=== PATIENT | female | born 1965 | race Caucasian/White ===

== ENCOUNTER → 2018-08-13 | Outpatient (CLI) | payer OTHER | END | disposition home or self-care (01) | LOC: CFH 13:22 | PROVIDERS: ATTEND Nurse Practitioner | DX: N63.10 Unspecified lump in the right breast, unspecified quadrant (principal) | CPT/HCPCS: 76641; 77065; G0279 ==

== ENCOUNTER → 2018-09-17 | Outpatient (CLI) | payer OTHER ==
[~2018-09-17] MED LIST: LIDOCAINE 1%, 20ML ONE; LIDOCAINE 1%-EPI 1:100K, 20ML ONE; SODIUM BICARBONATE 4.0%, 5ML ONE
== END | disposition home or self-care (01) ==
LOC: CFH 07:35
PROVIDERS: ATTEND Nurse Practitioner
DX: D05.11 Intraductal carcinoma in situ of right breast (principal)
CPT/HCPCS: 19081; 77065; 88305; 88360; J3490

== ENCOUNTER → 2018-10-15 | Outpatient (CLI) | payer OTHER | END | disposition home or self-care (01) | LOC: CFH 07:49 | PROVIDERS: ATTEND Surgery | DX: C50.911 Malignant neoplasm of unspecified site of right female breast (principal) | CPT/HCPCS: 19281; J3490 ==

== ENCOUNTER 2018-11-21 09:44 | Outpatient (CLI) | payer OTHER ==
[2018-11-22] MEDS ORDERED: CALC500T93 PO (11:47)
[2018-11-22] MEDS ORDERED: MULT1TAB60 PO (11:47)
== END 2018-11-21 23:59 | disposition home or self-care (01) ==
LOC: STAR 09:44
PROVIDERS: ATTEND Surgery
DX: Z02.9 Encounter for administrative examinations, unspecified (principal)

== ENCOUNTER 2018-12-02 11:02 | Day surgery (SDC) | payer OTHER ==
[~2018-12-02] VITALS: Ht 175.3 cm; Wt 89.5 kg
[~2018-12-02 11:02] MED LIST changes: +CALC500T93 PO; -LIDOCAINE 1%, 20ML ONE; -LIDOCAINE 1%-EPI 1:100K, 20ML ONE; +MULT1TAB60 PO; -SODIUM BICARBONATE 4.0%, 5ML ONE
[2018-12-02] MEDS ORDERED: BACITRACIN 50,000 UNIT ONE (11:08)
[2018-12-02] MEDS ORDERED: CEFAZOLIN 1,000 MG ONE ×2 (11:08→14:19)
[2018-12-02] MEDS ORDERED: GENTAMICIN 80 MG/2 ML ONE (11:08)
[2018-12-02] MEDS ORDERED: BUPIVACAINE/EPI 0.5% 1:200K ONE (11:08)
[2018-12-02] MEDS ORDERED: ISOSULFAN BLUE 10 MG/ML, 5ML IV ONE (11:08)
[2018-12-02] MEDS ORDERED: LACTATED RINGERS 1,000 ML IV SCH (11:12)
[2018-12-02] MEDS ORDERED: ACETAMINOPHEN 500 MG TABLET PO ONE (11:30)
[2018-12-02] MEDS ORDERED: SCOPOLAMINE PATCH, 1.5MG PATCH.TD72 TD ONE (11:30)
[2018-12-02] MEDS ORDERED: ONDANSETRON ODT 8 MG PO ONE (11:30)
[2018-12-02] MEDS ORDERED: GABAPENTIN 300 MG CAPSULE PO ONE (11:30)
[2018-12-02] MEDS ORDERED: MIDAZOLAM 1 MG/ML, 2ML ONE (12:11)
[2018-12-02] MEDS ORDERED: FENTANYL PF 250 MCG/5ML ONE (12:12)
[2018-12-02 12:24] LABS: BASOPHILS # (AUTO) 0.04 x10^3/uL (0-0.1); BASOPHILS % (AUTO) 1 % (0-1); EOSINOPHILS # (AUTO) 0.11 x10^3/uL (0-0.4); EOSINOPHILS % (AUTO) 2 % (1-7); LYMPHOCYTES % (AUTO) 30 % (22-44); MD NO; MEAN CORPUSCULAR HEMOGLOBIN 33.6 pg (27.0-34.8); MEAN CORPUSCULAR HGB CONC 33.3 g/dL (32.4-35.8); MEAN PLATELET VOLUME 8.5 fL (7.4-10.4); MONOCYTES # (AUTO) 0.51 x10^3/uL (0.2-0.8); MONOCYTES % (AUTO) 10 % (2-9); NEUTROPHILS % (AUTO) 57 % (42-75); PLATELET COUNT 242 x10^3/uL (130-400); RED BLOOD COUNT 4.28 x10^6/uL (3.82-5.3)
[2018-12-02] MEDS ORDERED: MEPERIDINE/PF 25MG/0.5ML IVPush PRN (13:30)
[2018-12-02] MEDS ORDERED: METOPROLOL 1 MG/ML, 5ML IV PRN (13:30)
[2018-12-02] MEDS ORDERED: DIAZEPAM 5 MG/ML, 2ML IVPush PRN (13:30)
[2018-12-02] MEDS ORDERED: hydrALAzine 20 MG/ML, 1ML IV PRN (13:30)
[2018-12-02] MEDS ORDERED: ALBUTEROL/IPRATROPIUM 2.5MG/0.5MG, 3 ML NPPB PRN (13:30)
[2018-12-02] MEDS ORDERED: HYDROmorphone 2 MG/ML, 1ML IVPush PRN (13:30)
[2018-12-02] MEDS ORDERED: PROMETHAZINE 25 MG/ML, 1ML IV PRN (13:30)
[2018-12-02] MEDS ORDERED: MIDAZOLAM 1 MG/ML, 2ML IV PRN (13:30)
[2018-12-02] MEDS ORDERED: ONDANSETRON 2MG/ML, 2ML IV PRN (13:30)
[2018-12-02] MEDS ORDERED: OXYcodone 5 MG/5 ML ORAL.SOL UDC PO PRN (13:30)
[2018-12-02] MEDS ORDERED: ROCURONIUM 10MG/ML,5ML ONE (14:19)
[2018-12-02] MEDS ORDERED: DEXAMETHASONE 4 MG/ML, 1ML ONE (14:19)
[2018-12-02] MEDS ORDERED: ONDANSETRON 2MG/ML, 2ML ONE (14:19)
[2018-12-02] MEDS ORDERED: PROPOFOL 10 MG/ML, 20ML ONE (14:19)
[2018-12-02] MEDS ORDERED: SUCCINYLCHOLINE 20 MG/ML, 10ML ONE (14:19)
[2018-12-02] MEDS ORDERED: LIDOCAINE 2%, 6 ML JEL.PF.APP MM ONE ×2 (14:19)
[2018-12-02] MEDS ORDERED: FENTANYL PF 100 MCG/2ML ONE ×2 (14:43→15:35)
[2018-12-02] MEDS ORDERED: OXYcodone 5 MG/5 ML ORAL.SOL UDC ONE (15:35)
[2018-12-02] MEDS: FENTANYL PF 100 MCG/2ML IV PRN ×2 (15:40→15:50)
== END 2018-12-02 19:12 | disposition home or self-care (01) ==
LOC: OUT 11:02 → EDSTATUS 15:00 → OUT 19:12
PROVIDERS: ATTEND Surgery
DX: C50.211 Malignant neoplasm of upper-inner quadrant of right female breast (principal); N65.1 Disproportion of reconstructed breast; N64.9 Disorder of breast, unspecified; F41.9 Anxiety disorder, unspecified; Z88.0 Allergy status to penicillin; E66.3 Overweight; Z68.29 Body mass index [BMI] 29.0-29.9, adult; Z17.0 Estrogen receptor positive status [ER+]; Z79.890 Hormone replacement therapy
CPT/HCPCS: 19301; 19318; 19366; 36415; 38525; 38792; 76098; 85025; 88305; 88307; 88329; 88333; 93005; A9541; C1729; J0330; J0690; J1100; J1580; J2250; J2405; J2704; J3010; J7120; Q0162

== ENCOUNTER 2018-12-31 08:04 | Outpatient (CLI) | payer OTHER | END 2018-12-31 23:59 | disposition home or self-care (01) | LOC: ROC 08:04 | PROVIDERS: ATTEND Radiology Radiation Oncology | DX: C50.911 Malignant neoplasm of unspecified site of right female breast (principal) | CPT/HCPCS: 99214; G0463 ==

== ENCOUNTER → 2019-05-05 | Outpatient (CLI) | payer OTHER | END | disposition home or self-care (01) | LOC: CFH 12:49 | PROVIDERS: ATTEND Radiology Radiation Oncology | DX: N63.10 Unspecified lump in the right breast, unspecified quadrant (principal); N64.89 Other specified disorders of breast; J34.2 Deviated nasal septum; Z85.3 Personal history of malignant neoplasm of breast; Z92.3 Personal history of irradiation | CPT/HCPCS: 70486; 77066; G0279 ==

== ENCOUNTER → 2019-05-08 | Outpatient (CLI) | payer OTHER | END | disposition home or self-care (01) | LOC: ROC 08:17 | PROVIDERS: ATTEND Radiology Radiation Oncology | DX: C50.211 Malignant neoplasm of upper-inner quadrant of right female breast (principal); Z92.3 Personal history of irradiation | CPT/HCPCS: 99212; G0463 ==

== ENCOUNTER → 2020-01-14 | Outpatient (CLI) | payer OTHER ==
[~2020-01-14] MED LIST changes: +MULT-449 PO; -MULT1TAB60 PO
== END | disposition home or self-care (01) ==
LOC: ROC 08:02
PROVIDERS: ATTEND Radiology Radiation Oncology
DX: C50.211 Malignant neoplasm of upper-inner quadrant of right female breast (principal)
CPT/HCPCS: 99213; G0463

== ENCOUNTER → 2020-05-05 | Outpatient (CLI) | payer OTHER | END | disposition home or self-care (01) | LOC: ROC 07:43 | PROVIDERS: ATTEND Radiology Radiation Oncology | DX: Z08 Encounter for follow-up examination after completed treatment for malignant neoplasm (principal); Z85.3 Personal history of malignant neoplasm of breast | CPT/HCPCS: 99212; G0463 ==

== ENCOUNTER → 2020-11-02 | Outpatient (CLI) | payer OTHER | END | disposition home or self-care (01) | LOC: ROC 08:01 | PROVIDERS: ATTEND Radiology Radiation Oncology | DX: Z08 Encounter for follow-up examination after completed treatment for malignant neoplasm (principal); Z85.3 Personal history of malignant neoplasm of breast | CPT/HCPCS: 99213; G0463 ==